=== PATIENT | male | born 1950 | race Caucasian/White ===

== ENCOUNTER → 2021-10-04 | Outpatient (CLI) | payer MEDICARE | LOC: ORTHO 11:01 | PROVIDERS: ATTEND Orthopaedic Surgery | DX: M17.11 Unilateral primary osteoarthritis, right knee (principal) | CPT/HCPCS: 20610 ==

== ENCOUNTER → 2021-11-22 | Outpatient (CLI) | payer MEDICARE ==
--- NOTE | 2021-11-22 13:52 | Diagnostic Imaging Report ---
INDICATION: Right knee pain. TIME OF EXAM: 1:06 PM. FINDINGS: Four views of the right knee were obtained. There is medial compartmental degenerative change with joint space narrowing. No fracture, dislocation, or effusion is seen. IMPRESSION: Degenerative changes. No acute abnormality is detected. Dictated by: Dictated on workstation # [id number]
== END ==
LOC: ORTHO 12:35
PROVIDERS: ATTEND Orthopaedic Surgery
DX: M17.11 Unilateral primary osteoarthritis, right knee (principal)
CPT/HCPCS: 73564; G0463; 99213

== ENCOUNTER 2021-12-15 09:46 | Outpatient (CLI) | payer MEDICARE ==
[~2021-12-15] VITALS: Ht 180.3 cm; Wt 85.5 kg
[2021-12-15 10:43] VITALS: BP 151/81
[2021-12-15 10:46] LABS: BILIRUBIN,URINE NEGATIVE (NEGATIVE); CLARITY,URINE CLEAR; COLOR,URINE YELLOW; GLUCOSE, URINE (UA) NEGATIVE (NEGATIVE); KETONES,URINE NEGATIVE (NEGATIVE); LEUKOCYTE ESTERASE ,URINE NEGATIVE (NEGATIVE); NITRITE,URINE NEGATIVE (NEGATIVE); PROTEIN,URINE NEGATIVE (NEGATIVE)
[2021-12-15 10:58] LABS: PROTHROMBIN TIME PATIENT 13.7 SEC (12.2-14.7)
[2021-12-15] MEDS ORDERED: MULT1CAP60 PO (10:58)
[2021-12-15] MEDS ORDERED: [UNRECOGNIZED DRUG - CODE] PO (10:58)
[2021-12-15] MEDS ORDERED: LOSA1TAB26 PO (10:58)
[2021-12-15] MEDS ORDERED: MAGN250T13 PO (10:58)
[2021-12-15] MEDS ORDERED: CARV25TA PO (10:58)
[2021-12-15] MEDS ORDERED: L.AC1CAP6 PO (10:58)
[2021-12-15] MEDS ORDERED: TMSL.4C PO (10:58)
[2021-12-15] MEDS ORDERED: FINA5TAB6 PO (10:58)
[2021-12-15] MEDS ORDERED: MV-M1TAB20 PO (10:58)
[2021-12-15] MEDS ORDERED: CELE-63 PO (10:58)
[2021-12-15] MEDS ORDERED: DICL20GE TP (10:58)
[2021-12-15] MEDS ORDERED: ZOLP5TAB7 PO (10:58)
[2021-12-15] MEDS ORDERED: TURM500C4 PO (10:58)
[2021-12-15 11:05] LABS: BACTERIA,URINE NEGATIVE /HPF; SQUAMOUS EPITHELIAL CELL,UR RARE /HPF
== END 2021-12-15 11:55 ==
LOC: PREOP 09:46
PROVIDERS: ATTEND Orthopaedic Surgery
DX: Z01.812 Encounter for preprocedural laboratory examination (principal); M17.11 Unilateral primary osteoarthritis, right knee; Z20.822 Contact with and (suspected) exposure to COVID-19
CPT/HCPCS: 36415; 81000; 85610; 86850; 86900; 86901; 87081; 87636

== ENCOUNTER 2021-12-19 05:57 | Inpatient (IN) | payer MEDICARE ==
[2021-12-19] VITALS (12 sets, daily range): BP systolic 124–163; BP diastolic 71–86
[~2021-12-19] VITALS: Ht 180.3 cm; Wt 85.5 kg
[~2021-12-19 05:57] MED LIST: CARV25TA PO; CELE-63 PO; DICL20GE TP; FINA5TAB6 PO; L.AC1CAP6 PO; LOSA1TAB26 PO; MAGN250T13 PO; MULT1CAP60 PO; MV-M1TAB20 PO; TMSL.4C PO; TURM500C4 PO; ZOLP5TAB7 PO; [UNRECOGNIZED DRUG - CODE] PO
[2021-12-19] MEDS: LACTATED RINGERS 1,000 ML IV PRN ×2 (06:19→08:03)
[2021-12-19] MEDS ORDERED: BUPIVACAINE 0.25% 30 ML (SENSORCAINE) VIAL ONE (06:23)
[2021-12-19] MEDS ORDERED: MIDAZOLAM 2 MG/2 ML (VERSED) VIAL ONE (06:23)
[2021-12-19] MEDS ORDERED: ceFAZolin 2 GM IV Premixed 50 ML IV ONE (06:30)
[2021-12-19] MEDS ORDERED: ceFAZolin 2 GM IV Premixed 50 ML ONE (06:34)
[2021-12-19] MEDS ORDERED: ONDANSETRON 4 MG/2 ML (SDV) Z0FRAN ONE (06:56)
[2021-12-19] MEDS ORDERED: ROCURONIUM 50 MG/5 ML (ZEMURON) VIAL IV ONE (06:56)
[2021-12-19] MEDS ORDERED: LIDOCAINE PF 2% 5 ML (XYLOCAINE) VIAL ONE (06:56)
[2021-12-19] MEDS ORDERED: fentaNYL INJ 100 MCG/2 ML AMP ONE (06:56)
[2021-12-19] MEDS ORDERED: proPOfol 200 MG/20 ML (DIPRIVAN) VIAL IV ONE (06:56)
--- NOTE | 2021-12-19 07:06 | Progress Note-Pre Operative ---
Pre-Operative Progress Note H&P Reviewed The H&P was reviewed, patient examined and no changes noted. Date Seen by Provider: Dec 19, 2021 Time Seen by Provider: 07:00 Date H&P Reviewed: Dec 19, 2021 Time H&P Reviewed: 07:00 Pre-Operative Diagnosis: R Knee Primary OA DEYSI KRISHNA MD Dec 19, 2021 07:06
[2021-12-19] MEDS ORDERED: TRANEXAMIC ACID INJECTION 3,000 MG, SODIUM CHLORIDE 0.9% IRRIGATIO 150 ML IR ONE ×2 (07:15)
[2021-12-19] MEDS ORDERED: SODIUM CHLORIDE 0.9% IR ONE ×2 (07:15)
[2021-12-19] MEDS ORDERED: TRANEXAMIC ACID IR ONE ×2 (07:15)
[2021-12-19] MEDS ORDERED: SEVOFLURANE (ULTANE) 15 ML INHAL SOLN ONE (09:21)
[2021-12-19] MEDS ORDERED: ONDANSETRON 4 MG/2 ML (SDV) Z0FRAN IV PRN (09:30)
--- NOTE | 2021-12-19 09:43 | Operative Report - Ortho ---
Operative Report Surgeon (s)/Limehouse Worker (s) Surgeon DEYSI KRSIHNA MD Limehouse Worker n/a Pre-Operative Diagnosis Right Knee Primary Osteoarthritis Post-Operative Diagnosis same Operative Report Date of Procedure: Dec 19, 2021 Name of Procedure Performed: Right Total Knee Arthroplasty Description & Findings After obtaining informed consent and marking the patient in the preoperative holding area, the patient did receive IV antibiotics. Patient was taken to the operating room and anesthesia was induced. Surgical timeout was taken. The right lower extremity was prepped and draped in the usual sterile fashion. Incision was made and carried down to fascia. Arthrotomy was performed on the medial side of the patella. Patella was retracted laterally and knee was flexed. Found to have circumferential osteophtye around the distal femur as well as exposed bone in the medial compartment. Hole was made in the distal femur for the intramedullary distal femoral cutting guide. Resection was made then the femur was sized as a 6. 4-in-1 block for a size [address]. Anterior cut was made and there was no notch. Posterior cut was made followed by the chamfers. Box cut was performed. Lug holes were drilled. Attention was turned to the tibial side, extramedullary tibial guide was put into place and aligned with the tibial crest. It was set to take 2 mm off of the affected medial side. Drop sima was used to confirm alignment. Resection was made and was parallel to the joint line. Tibial bone block was removed. Lamina audit analyst was put into place and the menisci and posterior osteophytes were removed. The knee was trialed with a size 6 femur and a size 5 tibia with a 9 mm poly trial. It was found to come out to full extension and flexed beyond 120 degrees. It was stable to varus and valgus stress throughout its range of motion. This was accepted. Knee was brought out into extension and the patella was prepared for an inset patellar button. Patellar trial was placed and this tracked well through the groove of the trial femur. Trial implants were removed. Tibial trial was pinned and punched. The cut bone surfaces were lavaged with pulsatile normal saline. Implants were opened and assembled on the back table. Cement was mixed. Cement was applied to the cut bone surface as well as the implant surface. A size 5 tibial component was impacted into placed and excess cement was removed using a [place]. A size 6 femoral component was impacted into place and excess cement was removed using a [place]. Tibial tray was lavaged with saline. A 9 mm thick polyethylene component was locked into placed and the locking mechanism was checked. Knee was brought into extension. Patellar surface was irrigated, drie d, and then cement was applied. Patellar component was clamped into place and excess cement was removed using the [place]. The knee was irrigated with normal saline. Irrigation was removed and tranexamic acid was placed. Once the cement had set, the knee was once again trialed; found to come to full extension, flexed beyond 120 degrees, and was stable to varus and valgus stress. Further tranexamic acid was applied for hemostasis. Tourniquet was dropped and electrocautery was used for further hemostasis. Fascial layer was closed with #1 Ethibond. The subcutaneous layer was closed with 2-0 Vicryl. The skin was closed with a running subcuticular 3-0 V-loc. Wound was dressed with mastisol, steri-strips, xeroform, 4x4s, ABD, webril, and TRESA wrap. Patient tolerated the procedure well and was stable to the recovery room. Anesthesia Type General plus regional Estimated Blood Loss 150 mL Specimen(s) collected/removed none DEYSI KRISHNA MD Dec 19, 2021 09:43
[2021-12-19] MEDS ORDERED: MEPERIDINE (DEMEROL) INJ 50 MG/ML IVP ONE (09:45)
[2021-12-19] MEDS ORDERED: PROMETHAZINE INJ 25 MG/ML (PHENERGAN) AMP IVP ONE (09:45)
[2021-12-19] MEDS ORDERED: morphine INJ 10 MG/ML 1ML (SYR OR VIAL) IVP ONE (09:45)
[2021-12-19] MEDS ORDERED: ONDANSETRON 4 MG/2 ML (SDV) Z0FRAN IVP PRN (09:45)
[2021-12-19] MEDS ORDERED: HYDROmorphone 2 MG/ML VIAL (DILAUDID) IV ONE (09:45)
--- NOTE | 2021-12-19 09:53 | Diagnostic Imaging Report ---
INDICATION: Right knee surgery AP and lateral views of the right knee are obtained. There has been total right knee arthroplasty with good positioning of prosthetic components. Gas and fluid is seen within the tissues surrounding the right knee however there is no evidence of fracture or immediate orthopedic hardware complication. IMPRESSION: No evidence of immediate complication post recent total right knee arthroplasty. Dictated by: Dictated on workstation # [id number]
--- NOTE | 2021-12-19 11:26 | Physical Therapy Evaluation ---
PT Evaluation-General Medical Diagnosis Admission Date Dec 19, 2021 at 05:57 Medical Diagnosis: right TKR Onset Date: Dec 19, 2021 Therapy Diagnosis Therapy Diagnosis: debility/weakness Weight Bear Status Right Lower Extremity: Right Weight Bearing/Tolerated Left Lower Extremity: Left Full Weight Bearing Referral Physician: Elham Reason for Referral: Evaluation/Treatment Medical History Pertinent Medical History: Arthritis, OA Current History s/o elective right TKR Reviewed History: Yes Social History Home: Multilevel Current Living Status: Spouse Entry Into Home: Stairs With Railing PT Steps Into Home: 2 2 flights of stairs inside home. Bedroom and bathroom on main level and does not have to go up stairs unless he has too. Prior Prior Level of Function SCALE: Activities may be completed with or without assistive devices. 8-Hmcjjxfuew-iblehnx completes the activity by him/herself with no assistance from a helper. 5-Set-up or Clean-up Assistance-helper sets up or cleans up; patient completes activity. [place] assists only prior to or following the activity. 4-Supervision or Touching Assistance-helper provides verbal cues and/or touching/steadying and/or contact guard assistance as patient completes activity. Assistance may be provided throughout the activity or intermittently. 3-Partial/Moderate Assistance-helper does LESS THAN HALF the effort. [place] lifts, holds or supports trunk or limbs, but provides less than half the effort. 2-Substantial/Maximal Assistance-helper does MORE THAN HALF the effort. [place] lifts or holds trunk or limbs and provides more than half the effort. 7-Fwielazjm-acfamb does ALL the effort. Patient does none of the effort to complete the activity. Or, the assistance of 2 or more helpers is required for the patient to complete the activity. If activity was not attempted, code reason: 7-Patient Refused. 9-Not Applicable-not attempted and the patient did not perform the activity before the current illness, exacerbation or injury. 10-Not Attempted due to Environmental Limitations-(lack of equipment, weather restraints, etc.). 88-Not Attempted due to Medical Conditions or Safety Concerns. Bed Mobility: 6 Transfers (B,C,W/C): 6 Gait: 6 Stairs: 6 Indoor Mobility (Ambulation): Independent Stairs: Independent Prior Devices Use: None PT Evaluation-Current Subjective Patient presents s/p R TKA. Patient is laying in bed and agrees to participate in therapy. Patient reports that he had his other knee replaced 6 years ago. Objective Patient Orientation: Person, Place, Time, Situation Attachments: Rosen Catheter, IV ROM/Strength ROM Lower Extremities CPM right LE 0-50 degrees R knee AROM 75 deg flexion and lacking full extension Strength Lower Extremities L LE: 4+/5 strength grossly Integumentary/Posture Posture WFL Neuromuscular (Tone, Coordination, Reflexes) grossly intact Sensory Vision: Functional Hearing: Hearing Aid/Aides Transfers Roll Left to Right (QC): 6 Lying to Sitting/Side of Bed(Q: 6 Sit to Stand (QC): 4 Chair/Eas-oq-Tklqj Xfer(QC): 4 Gait Does the Patient Walk?: Yes Mode of Locomotion: Walk Anticipated Mode of Locomotion: Walk Walk 10 feet (QC): 4 Walk 50 ft with 2 Turns(QC): 4 Walk 150 ft (QC): 4 Distance: 150' Gait Assistive Device: FWW Comments/Gait Description Patient ambulated with FWW and CGA for 150'. Patient reported that it felt good to walk on his knee. Patient is attempting to walk with normal reciprocal pa ttern. Wheelchair Training Does the Pt Use a Wheelchair?: No Balance Sitting Static: Normal Sitting Dynamic: Normal Standing Static: Fair Standing Dynamic: Fair Treatment CPM 0-50 degrees with polar pack right LE Supine exercises: SLR x10, Heel slides, Quad and glute set x10 Seated exercises: LAQ and seated marches x10 Ambulation Assessment/Needs Patient presents s/p R TKA. Patient ambulated for 150' with CGA and FWW and performed supine and seated exercises. Patient had CPM machine on for 2 hours per surgeon orders. Patient requires skilled therapy to increase strength and ROM to return to PLOF. Rehab Potential: Good PT Professor Of German Goals Long-Term Goals PT Professor Of German Goals Time Frame: Dec 24, 2021 Roll Left & Right (QC): 6 Sit to Lying (QC): 6 Lying-Sitting on Side/Bed(QC): 6 Sit to Stand (QC): 6 Chair/Hww-bm-Sacoj Xfer(QC): 6 Does the Patient Walk: Yes Walk 10 feet (QC): 6 Walk 50ft with 2 Turns (QC): 6 Walk 150 ft (QC): 6 1 Step (curb) (QC): 6 4 Steps (QC): 6 PT Plan Problem List Problem List: Activity Tolerance, Functional Strength, Safety, Balance, Gait, Transfer, ROM Treatment/Plan Treatment Plan: Continue Plan of Care Treatment Plan: Bed Mobility, Education, Functional Activity Adela, Functional Strength, Gait, Safety, Therapeutic Exercise, Transfers Treatment Duration: Dec 24, 2021 Frequency: 11 times per week Estimated Hrs Per Day: .5 hour per day Safety Risks/Education Patient Education: Gait Training, Correct Positioning Teaching Recipient: Patient Teaching Methods: Discussion Time/GCodes Time In: 1300 Time Out: 1315 Total Billed Treatment Time: 15 Total Billed Treatment 1 visit CPM/PADS [id number] (10 min) 1 Visit EVModC 15 min MCKENNA REGAN PT Dec 19, 2021 11:26
[2021-12-19] MEDS ORDERED: ceFAZolin 2 GM IV Premixed 50 ML IV NR (12:00)
[2021-12-19] MEDS: morphine INJ 4 MG/ML 1 ML (VIAL/SYRINGE) IVP PRN (13:42)
[2021-12-19] MEDS: MILK OF MAGNESIA 400 MG/5 ML 30 ML UDC PO PRN (13:42)
[2021-12-19] MEDS: ASPIRIN E.C. 81 MG (ECOTRIN) TAB PO SCH (17:44)
[2021-12-19] MEDS ORDERED: CELECOXIB 100 MG (CeleBREX) CAP PO SCH (21:00)
[2021-12-19] MEDS ORDERED: NON-FORMULARY MEDICATION 1 EA EA (Carvedilol 25 MG) PO SCH (21:00)
[2021-12-19] MEDS: FINASTERIDE (PROSCAR) 5 MG TAB PO SCH (21:04)
[2021-12-19] MEDS: ZOLPIDEM 5 MG (AMBIEN) TAB PO SCH (21:04)
[2021-12-19] MEDS: DOCUSATE SODIUM 100 MG (COLACE) CAP PO SCH (21:04)
[2021-12-19] MEDS: ceFAZolin 2 GM IV Premixed 50 ML IV SCH (21:05)
[2021-12-20 03:16] VITALS: BP 128/67
[2021-12-20] MEDS: morphine INJ 4 MG/ML 1 ML (VIAL/SYRINGE) IVP PRN (03:21)
[2021-12-20] MEDS: ceFAZolin 2 GM IV Premixed 50 ML IV SCH (05:17)
[2021-12-20] MEDS: MULTIVIT W/MINERALS TAB (THERAGRAN M) PO SCH (05:18)
[2021-12-20] MEDS: BISACODYL 5 MG (DULCOLAX) TABLET PO PRN ×2 (05:25→18:08)
[2021-12-20 08:15] VITALS: BP 134/59
--- NOTE | 2021-12-20 08:20 | Progress Note - Ortho ---
Progress Note Subjective Date of Exam 12/20/21 Chief Complaint POD #1 R TKA HPI/Events since last exam pain reasonably controlled, some issues with CPM machine, was able to ambulate in the abarca on day of surgery Review of Systems - Allergies: Coded Allergies: No Known Drug Allergies (Unverified , 12/19/21) Home Meds Reported Medications Diclofenac Sodium (Voltaren Arthritis Pain) 20 Gm Gel..gram., 20 GM TP TID, EA 12/15/21 L.acidoph & Paracasei,B.lactis (Probiotic) 1 Each Capsule, 1 EACH PO DAILY, CAP 12/15/21 Magnesium Oxide (Magnesium) 250 Mg Tablet, 250 MG PO DAILY, TAB 12/15/21 Turmeric/Turmeric Root Extract (Turmeric 500 mg Capsule) 1 Each Capsule, 1 EACH PO DAILY, CAP 12/15/21 Mv-Mn/Iron/FA/Herbal Cmplx#190 (Vitamin D3 Complete Caplet) 1 Each Tablet, 1 EACH PO DAILY, TAB 12/15/21 Glucosamine Sulfate 2Kcl (Glucosamine Sulfate) 1,000 Mg Capsule, 2000 MG PO DAILY, CAP 12/15/21 Multivit-Min/Folic Acid/Vit K1 (Multi For Him Softgel) 1 Each Capsule, 1 EACH PO DAILY, CAP 12/15/21 Zolpidem Tartrate (Zolpidem Tartrate) 5 Mg Tablet, 5 MG PO HS, TAB 12/15/21 Finasteride (Finasteride) 5 Mg Tablet, 5 MG PO HS, TAB 12/15/21 Tamsulosin HCl (Flomax) 0.4 Mg Cap, 0.8 MG PO DAILY, CAP 12/15/21 Carvedilol (Carvedilol) 25 Mg Tablet, 25 MG PO BID, TAB MORNIG AND NOON 12/15/21 Losartan/Hydrochlorothiazide (Losartan-Hctz 100-12.5 mg Tab) 1 Each Tablet, 1 EACH PO DAILY, TAB 12/15/21 Celecoxib (Celecoxib) 200 Mg Capsule, 200 MG PO DAILY, CAP 12/15/21 Objective Exam R Knee: Dressing C/D/I, +DF of ankle, no s/s of DVT Vital Signs Vital Signs Date Time Temp Pulse Resp B/P (MAP) Pulse Ox O2 Delivery O2 Flow Rate FiO2 12/20/21 08:15 36.7 91 18 134/59 (84) 93 Room Air 12/20/21 03:16 36.7 89 20 128/67 (87) 94 Room Air 12/19/21 23:36 37.5 101 18 124/75 (91) 95 Room Air 12/19/21 20:40 95 Room Air 12/19/21 19:54 36.8 96 18 133/71 (91) 96 Room Air 12/19/21 19:26 98 Room Air 3.00 12/19/21 15:30 36.2 72 18 163/81 (108) 98 Room Air 12/19/21 15:25 Room Air 12/19/21 12:00 36.6 73 16 154/74 (100) 97 Room Air 12/19/21 10:25 Room Air 12/19/21 10:25 36.4 18 154/78 (103) 99 Room Air 12/19/21 10:25 36.0 62 12 146/77 (100) 100 Room Air 12/19/21 10:20 18 152/75 (100) 98 Room Air 12/19/21 10:14 Room Air 12/19/21 10:10 18 154/79 (104) 100 Room Air 12/19/21 10:06 Room Air 12/19/21 10:02 OxyMask 3 12/19/21 10:00 18 144/76 (98) 100 OxyMask 3 12/19/21 09:56 OxyMask 3 12/19/21 09:55 OxyMask 6 12/19/21 09:50 18 142/76 (98) 100 OxyMask 6 12/19/21 09:47 18 153/85 (107) 100 OxyMask 6 12/19/21 09:40 OxyMask 6 12/19/21 09:38 18 143/75 (97) 100 OxyMask 6 12/19/21 09:29 36.2 16 132/86 (101) 99 OxyMask 6 12/19/21 09:29 OxyMask 6 I & O 12/20/21 07:00 Intake Total 5060 ml Output Total 1250 ml Balance 3810 ml Lab Results Laboratory Tests 12/20/21 06:05: Hemoglobin 12.0L, Hematocrit 34L Imaging 2 views of the right knee datd 12/19/21 were reviewed from PACS and demonstrated total knee arthroplasty with components in good position, no complication Assessment and Plan Assessment s/p R TKA Problem List s/p R TKA Plan PT/OT DVT prophylaxis Plan for Home with Home Health on Final Diagonsis s/p R TKA Level of the visit: Level 3 (postop global) DEYSI KRISHNA MD Dec 20, 2021 08:20
--- NOTE | 2021-12-20 08:50 | Physical Therapy Daily Note ---
PT Daily Note-Current Subjective Patient is laying in bed and agrees to participate in PT. Patient reports that his knee was painful all night and he didn't get much sleep. Mental Status Patient Orientation: Person, Place, Time, Situation Attachments: Polar Pack Transfers SCALE: Activities may be completed with or without assistive devices. 7-Eqiufvktei-oivlnnm completes the activity by him/herself with no assistance from a helper. 5-Set-up or Clean-up Assistance-helper sets up or cleans up; patient completes activity. [place] assists only prior to or following the activity. 4-Supervision or Touching Assistance-helper provides verbal cues and/or touching/steadying and/or contact guard assistance as patient completes activity. Assistance may be provided throughout the activity or intermittently. 3-Partial/Moderate Assistance-helper does LESS THAN HALF the effort. [place] lifts, holds or supports trunk or limbs, but provides less than half the effort. 2-Substantial/Maximal Assistance-helper does MORE THAN HALF the effort. [place] lifts or holds trunk or limbs and provides more than half the effort. 1-Noxciokmg-dbjspn does ALL the effort. Patient does none of the effort to complete the activity. Or, the assistance of 2 or more helpers is required for the patient to complete the activity. If activity was not attempted, code reason: 7-Patient Refused. 9-Not Applicable-not attempted and the patient did not perform the activity before the current illness, exacerbation or injury. 10-Not Attempted due to Environmental Limitations-(lack of equipment, weather restraints, etc.). 88-Not Attempted due to Medical Conditions or Safety Concerns. Roll Left & Right (QC): 6 Lying to Sitting/Side of Bed(Q: 6 Sit to Stand (QC): 4 Chair/Kij-cz-Wcskl Xfer(QC): 4 Weight Bearing Right Lower Extremity: Right Weight Bearing/Tolerated Left Lower Extremity: Left Full Weight Bearing Gait Training Does the Patient Walk?: Yes Distance: 250' Walk 10 feet (QC): 4 Walk 50 ft with 2 Turns(QC): 4 Walk 150 ft (QC): 4 Gait Assistive Device: FWW Patient ambulated with FWW and CGA for 250'. Patient reports that pain does not increase significantly while walking. Exercises Supine Ex: Quad Set, Heel Slides, Straight leg raise Supine Reps: 10 Seated Therapy Exercises: Long arc quads Seated Reps: 10 Assessment Patient ambulated and performed seated and standing exercises without significant fatigue. Patient reports that his knee is painful but is manageable through all exercises. Patient ROM is improving and is about 80 degrees of flexion. PT Shine Worker Goals Shine Worker Goals PT Shine Worker Goals Time Frame: Dec 24, 2021 Roll Left & Right (QC): 6 Sit to Lying (QC): 6 Lying-Sitting on Side/Bed(QC): 6 Sit to Stand (QC): 6 Chair/Big-sd-Gerfe Xfer(QC): 6 Does the Patient Walk: Yes Walk 10 feet (QC): 6 Walk 50ft with 2 Turns (QC): 6 Walk 150 ft (QC): 6 1 Step (curb) (QC): 6 4 Steps (QC): 6 PT Plan Problem List Problem List: Activity Tolerance, Functional Strength, Safety, Balance, Gait, Transfer, ROM Treatment/Plan Treatment Plan: Continue Plan of Care Treatment Plan: Bed Mobility, Education, Functional Activity Adela, Functional Strength, Gait, Safety, Therapeutic Exercise, Transfers Treatment Duration: Dec 24, 2021 Frequency: 11 times per week Estimated Hrs Per Day: .5 hour per day Time/GCodes Time In: 810 Time Out: 825 Total Billed Treatment Time: 15 Total Billed Treatment 1 Visit FA 15 min MCKENNA REGAN PT Dec 20, 2021 08:50
[2021-12-20] MEDS ORDERED: NON-FORMULARY MEDICATION 1 EA EA (Celecoxib 200 MG) PO SCH (09:00)
[2021-12-20] MEDS: CELECOXIB 100 MG (CeleBREX) CAP PO SCH (09:25)
[2021-12-20] MEDS: MILK OF MAGNESIA 400 MG/5 ML 30 ML UDC PO PRN (09:25)
[2021-12-20] MEDS: LOSARTAN 100 MG (COZAAR) TABLET PO SCH (09:25)
[2021-12-20] MEDS: ASPIRIN E.C. 81 MG (ECOTRIN) TAB PO SCH ×2 (09:25→18:08)
[2021-12-20] MEDS: DOCUSATE SODIUM 100 MG (COLACE) CAP PO SCH ×2 (09:25→21:26)
[2021-12-20] MEDS: TAMSULOSIN 0.4 MG (FLOMAX) CAP PO SCH (09:25)
--- NOTE | 2021-12-20 11:32 | Occupational Therapy Eval ---
OT Evaluation-General/PLF Medical Diagnosis Admission Date Dec 19, 2021 at 05:57 Medical Diagnosis: right TKR Onset Date: Dec 19, 2021 Therapy Diagnosis Therapy Diagnosis: decreased ADL Status. Precautions Precautions/Isolations: Fall Prevention, Standard Precautions Referral Physician: Elham Referral Reason: Evaluation/Treatment Medical History Pertinent Medical History: Arthritis, OA Current History s/p R TKA 12/20/21 Social History Home: [facility] Current Living Status: Spouse Entry Into Home: Stairs With Railing Steps Into Home: 2 ADL-Prior Level of Function SCALE: Activities may be completed with or without assistive devices. 9-Wybivnuluj-kxaipfg completes the activity by him/herself with no assistance from a helper. 5-Set-up or Clean-up Assistance-helper sets up or cleans up; patient completes activity. [place] assists only prior to or following the activity. 4-Supervision or Touching Assistance-helper provides verbal cues and/or touching/steadying and/or contact guard assistance as patient completes activity. Assistance may be provided throughout the activity or intermittently. 3-Partial/Moderate Assistance-helper does LESS THAN HALF the effort. [place] lifts, holds or supports trunk or limbs, but provides less than half the effort. 2-Substantial/Maximal Assistance-helper does MORE THAN HALF the effort. [place] lifts or holds trunk or limbs and provides more than half the effort. 9-Sjlmhmuli-noflqd does ALL the effort. Patient does none of the effort to complete the activity. Or, the assistance of 2 or more helpers is required for the patient to complete the activity. If activity was not attempted, code reason: 7-Patient Refused. 9-Not Applicable-not attempted and the patient did not perform the activity before the current illness, exacerbation or injury. 10-Not Attempted due to Environmental Limitations-(lack of equipment, weather restraints, etc.). 88-Not Attempted due to Medical Conditions or Safety Concerns. ADL PLOF Comments Pt reports IND with all ADLs and functional mobility at PLOF, no AD/AE. He lives in a multistory house, but has bathroom and bedroom on main level. OT Current Status Subjective Pt in recliner, requests to use bathroom upon OT entry. Mental Status/Objective Patient Orientation: Person, Place, Time, Situation Current Upper Extremity ROM WFL ADL-Treatment Eating (QC): 6 (Per pt report.) Oral Hygiene (QC): 6 (per clinical judgment.) Upper Body Dressing (QC): 5 (per clincial judgment.) Lower Body Dressing (QC): 3 (Per clincial judgment, requires assistance with RLE ) On/Off Footwear (QC): 3 (Pt able to don/doff L gripper sock, assistance R. ) Toileting Hygiene (QC): 4 (SBA) Other Treatments Pt in recliner, used FWW to transfer into bathroom and onto toilet, SBA. Pt completed toileting, then used FWW to stand at sink to wash hands independently. Pt transferred to recliner using FWW, SBA. Pt able to don/doff L gripper sock, required assistance with R. OT applied polar pack to R knee. Post tx, pt up in recliner, call light in reach and all needs met. Education OT Patient Education: Correct positioning, Energy conservation, Exercise program, Modified ADL techniques, Progress toward Goal/Update tx plan, Purpose of tx/functional activities, Rehab process Teaching Recipient: Patient Teaching Methods: Discussion Response to Teaching: Verbalize Understanding OT Intermediate Goals Manager Money Goals Time Frame: Dec 27, 2021 Eating (QC): 6 Oral Hygiene (QC): 6 Toileting Hygiene (QC): 6 Shower/Bathe Self (QC): 6 Upper Body Dressing (QC): 6 Lower Body Dressing (QC): 6 On/Off Footwear (QC): 6 Additional Goals: 1-Demonstrate ADL Tasks, 2-Verbalize Understanding, 3- ImproveStrength/Adela 1=Demonstrate adherence to instructed precautions during ADL tasks. 2=Patient will verbalize/demonstrate understanding of assistive devices/modifications for ADL. 3=Patient will improve strength/tolerance for activity to enable patient to perform ADL's. OT Education/Plan Problem List/Assessment Assessment: Decreased Activ Tolerance, Decreased UE Strength, Impaired I ADL's Discharge Recommendations Plan/Recommendations: Continue POC Treatment Plan/Plan of Care Patient would benefit from OT for education, treatment and training to promote independence in ADL's, mobility, safety and/or upper extremity function for ADL's. Plan of Care: ADL Retraining, Functional Mobility, UE Funct Exercise/Act Treatment Duration: Dec 27, 2021 Frequency: 3 times per week (3-5 times per week) Rehab Potential: Good Time/GCodes Start Time: 10:39 Stop Time: 10:58 Total Time Billed (hr/min): 19 Billed Treatment Time 1, KIMBERLEE DAVISON OT Dec 20, 2021 11:32
[2021-12-20 11:56] VITALS: BP 110/59
--- NOTE | 2021-12-20 14:07 | Anesthesia-General Post-Op ---
General Patient Condition Mental Status/LOC: Same as Preop Cardiovascular: Satisfactory Nausea/Vomiting: Absent Respiratory: Satisfactory Pain: Controlled Complications: Absent Post Op Complications Complications None Follow Up Care/Instructions Patient Instructions None needed. Anesthesia/Patient Condition Patient Condition Patient is doing well, does C/O a minimal sore throat which is to be expected, stable vital signs, no apparent adverse anesthesia problems. JEREMY GARCIA DO Dec 20, 2021 14:07
--- NOTE | 2021-12-20 14:23 | Physical Therapy Daily Note ---
PT Daily Note-Current Subjective Patient presents sitting in his chair and agrees to participate in therapy. Mental Status Patient Orientation: Person, Place, Time, Situation Attachments: Polar Pack Transfers SCALE: Activities may be completed with or without assistive devices. 6-Kibmzanepl-hbymidx completes the activity by him/herself with no assistance from a helper. 5-Set-up or Clean-up Assistance-helper sets up or cleans up; patient completes activity. [place] assists only prior to or following the activity. 4-Supervision or Touching Assistance-helper provides verbal cues and/or touching/steadying and/or contact guard assistance as patient completes activity. Assistance may be provided throughout the activity or intermittently. 3-Partial/Moderate Assistance-helper does LESS THAN HALF the effort. [place] lifts, holds or supports trunk or limbs, but provides less than half the effort. 2-Substantial/Maximal Assistance-helper does MORE THAN HALF the effort. [place] lifts or holds trunk or limbs and provides more than half the effort. 2-Idndlujgw-oyhvvd does ALL the effort. Patient does none of the effort to complete the activity. Or, the assistance of 2 or more helpers is required for the patient to complete the activity. If activity was not attempted, code reason: 7-Patient Refused. 9-Not Applicable-not attempted and the patient did not perform the activity before the current illness, exacerbation or injury. 10-Not Attempted due to Environmental Limitations-(lack of equipment, weather restraints, etc.). 88-Not Attempted due to Medical Conditions or Safety Concerns. Roll Left & Right (QC): 6 Sit to Lying (QC): 5 Lying to Sitting/Side of Bed(Q: 6 Sit to Stand (QC): 5 Chair/Jxe-hk-Dnqlx Xfer(QC): 5 Patient performed all transfers with set up assistance only. Weight Bearing Right Lower Extremity: Right Weight Bearing/Tolerated Left Lower Extremity: Left Full Weight Bearing Gait Training Does the Patient Walk?: Yes Distance: 250' Walk 10 feet (QC): 4 Walk 50 ft with 2 Turns(QC): 4 Walk 150 ft (QC): 4 Gait Assistive Device: FWW Patient ambulated with FWW with CGA. Exercises Supine Ex: Quad Set, Heel Slides, Straight leg raise Supine Reps: 10 Seated Therapy Exercises: Long arc quads, Hip flexion Seated Reps: 10 Assessment Patient completed supine and seated exercises and ambulated with minimal difficulty. Patient reported that his knee was sore. Patient requested to have the polar pack back on his knee after therapy session. PT Usp Goals Usp Goals PT Usp Goals Time Frame: Dec 24, 2021 Roll Left & Right (QC): 6 Sit to Lying (QC): 6 Lying-Sitting on Side/Bed(QC): 6 Sit to Stand (QC): 6 Chair/Qga-qb-Jckna Xfer(QC): 6 Does the Patient Walk: Yes Walk 10 feet (QC): 6 Walk 50ft with 2 Turns (QC): 6 Walk 150 ft (QC): 6 1 Step (curb) (QC): 6 4 Steps (QC): 6 PT Plan Problem List Problem List: Activity Tolerance, Functional Strength, Safety, Balance, Gait, Transfer, Bed Mobility, ROM Treatment/Plan Treatment Plan: Continue Plan of Care Treatment Plan: Bed Mobility, Education, Functional Activity Adela, Functional Strength, Gait, Safety, Therapeutic Exercise, Transfers Treatment Duration: Dec 24, 2021 Frequency: 11 times per week Estimated Hrs Per Day: .5 hour per day Time/GCodes Time In: 1313 Time Out: 1325 Total Billed Treatment Time: 12 Total Billed Treatment 1 Visit FA 12 min MCKENNA REGAN PT Dec 20, 2021 14:23
[2021-12-20 16:00] VITALS: BP 113/68
[2021-12-20] MEDS ORDERED: BISACODYL 10 MG SUPP (DULCOLAX) PR PRN (18:15)
[2021-12-20 20:00] VITALS: BP 109/57
[2021-12-20] MEDS: ZOLPIDEM 5 MG (AMBIEN) TAB PO SCH (21:25)
[2021-12-20] MEDS: FINASTERIDE (PROSCAR) 5 MG TAB PO SCH (21:26)
[2021-12-20 23:25] VITALS: BP 131/73
[2021-12-21 04:35] VITALS: BP 144/72
[2021-12-21 05:43] LABS: HEMOGLOBIN 11.8 g/dL (13.3-17.7)
[2021-12-21] MEDS: MULTIVIT W/MINERALS TAB (THERAGRAN M) PO SCH (06:34)
[2021-12-21 08:00] VITALS: BP 114/57
[2021-12-21] MEDS: DOCUSATE SODIUM 100 MG (COLACE) CAP PO SCH ×2 (08:31→21:16)
[2021-12-21] MEDS: CELECOXIB 100 MG (CeleBREX) CAP PO SCH (08:31)
[2021-12-21] MEDS: LOSARTAN 100 MG (COZAAR) TABLET PO SCH (08:31)
[2021-12-21] MEDS: TAMSULOSIN 0.4 MG (FLOMAX) CAP PO SCH (08:32)
[2021-12-21] MEDS: ASPIRIN E.C. 81 MG (ECOTRIN) TAB PO SCH ×2 (08:32→16:38)
[2021-12-21] MEDS: MILK OF MAGNESIA 400 MG/5 ML 30 ML UDC PO PRN (08:35)
--- NOTE | 2021-12-21 10:23 | Progress Note - Ortho ---
Progress Note Subjective Date of Exam 12/21/21 Chief Complaint POD #2 R TKA HPI/Events since last exam pain controlled, making progress with therapy, very concerned about bowel movement Review of Systems - Allergies: Coded Allergies: No Known Drug Allergies (Unverified , 12/19/21) Home Meds Reported Medications Diclofenac Sodium (Voltaren Arthritis Pain) 20 Gm Gel..gram., 20 GM TP TID, EA 12/15/21 L.acidoph & Paracasei,B.lactis (Probiotic) 1 Each Capsule, 1 EACH PO DAILY, CAP 12/15/21 Magnesium Oxide (Magnesium) 250 Mg Tablet, 250 MG PO DAILY, TAB 12/15/21 Turmeric/Turmeric Root Extract (Turmeric 500 mg Capsule) 1 Each Capsule, 1 EACH PO DAILY, CAP 12/15/21 Mv-Mn/Iron/FA/Herbal Cmplx#190 (Vitamin D3 Complete Caplet) 1 Each Tablet, 1 EACH PO DAILY, TAB 12/15/21 Glucosamine Sulfate 2Kcl (Glucosamine Sulfate) 1,000 Mg Capsule, 2000 MG PO DAILY, CAP 12/15/21 Multivit-Min/Folic Acid/Vit K1 (Multi For Him Softgel) 1 Each Capsule, 1 EACH PO DAILY, CAP 12/15/21 Zolpidem Tartrate (Zolpidem Tartrate) 5 Mg Tablet, 5 MG PO HS, TAB 12/15/21 Finasteride (Finasteride) 5 Mg Tablet, 5 MG PO HS, TAB 12/15/21 Tamsulosin HCl (Flomax) 0.4 Mg Cap, 0.8 MG PO DAILY, CAP 12/15/21 Carvedilol (Carvedilol) 25 Mg Tablet, 25 MG PO BID, TAB MORNIG AND NOON 12/15/21 Losartan/Hydrochlorothiazide (Losartan-Hctz 100-12.5 mg Tab) 1 Each Tablet, 1 EACH PO DAILY, TAB 12/15/21 Celecoxib (Celecoxib) 200 Mg Capsule, 200 MG PO DAILY, CAP 12/15/21 Objective Exam R Knee: Incision C/D/I, +DF of ankle, no s/s of DVT Vital Signs Vital Signs Date Time Temp Pulse Resp B/P (MAP) Pulse Ox O2 Delivery O2 Flow Rate FiO2 12/21/21 08:00 36.8 82 20 114/57 (76) 96 Room Air 12/21/21 08:00 Room Air 12/21/21 04:35 36.2 79 20 144/72 (96) 99 Room Air 12/20/21 23:25 36.4 86 20 131/73 (92) 98 Room Air 12/20/21 20:00 36.6 84 20 109/57 (74) 96 Room Air 12/20/21 19:48 Room Air 12/20/21 16:00 36.7 81 16 113/68 (83) 96 Room Air 12/20/21 13:55 Room Air 0.00 12/20/21 11:56 36.2 85 18 110/59 (76) 96 Room Air I & O 12/21/21 07:00 Intake Total 2290 ml Output Total 200 ml Balance 2090 ml Lab Results Laboratory Tests 12/21/21 04:40: Hemoglobin 11.8L, Hematocrit 34L Assessment and Plan Assessment s/p R TKA Problem List s/p R TKA Plan PT/OT DVT prophylaxis Plan for home with home health tomorrow Final Diagonsis s/p R TKA Level of the visit: Level 3 (postop global) DEYSI KRISHNA MD Dec 21, 2021 10:23
--- NOTE | 2021-12-21 10:42 | Occupational Ther Daily Note ---
OT Current Status-Daily Note Subjective Pt in recliner. Pt agreeable to OT tx. Mental Status/Objective Patient Orientation: Person, Place, Time, Situation ADL-Treatment Therapy Code Descriptions/Definitions Functional [place] Measure: 0=Not Assessed/NA 4=Minimal Assistance 1=Total Assistance 5=Supervision or Setup 2=Maximal Assistance 6=Modified [place] 3=Moderate Assistance 7=Complete IndependenceSCALE: Activities may be completed with or without assistive devices. 7-Bundkcjgvu-jgciklt completes the activity by him/herself with no assistance from a helper. 5-Set-up or Clean-up Assistance-helper sets up or cleans up; patient completes activity. [place] assists only prior to or following the activity. 4-Supervision or Touching Assistance-helper provides verbal cues and/or touching/steadying and/or contact guard assistance as patient completes activity. Assistance may be provided throughout the activity or intermittently. 3-Partial/Moderate Assistance-helper does LESS THAN HALF the effort. [place] lifts, holds or supports trunk or limbs, but provides less than half the effort. 2-Substantial/Maximal Assistance-helper does MORE THAN HALF the effort. [place] lifts or holds trunk or limbs and provides more than half the effort. 4-Jfbxlzlcd-ormdbd does ALL the effort. Patient does none of the effort to complete the activity. Or, the assistance of 2 or more helpers is required for the patient to complete the activity. If activity was not attempted, code reason: 7-Patient Refused. 9-Not Applicable-not attempted and the patient did not perform the activity before the current illness, exacerbation or injury. 10-Not Attempted due to Environmental Limitations-(lack of equipment, weather restraints, etc.). 88-Not Attempted due to Medical Conditions or Safety Concerns. Lower Body Dressing (QC): 6 (independent) On/Off Footwear: 6 (independent ) Toilet Transfer (QC): 6 (Per pt report) Other Treatment Pt in recliner. Pt doffed socks independently. Pt donned socks and briefs, he was educated/shown AE that he could use if needed. Pt practiced using AE to don socks and briefs, no errors. Pt in recliner, call light in reach and all needs met. Pt reports no concerns with his ability to complete ADLs at discharge. Education OT Patient Education: Correct positioning, Energy conservation, Modified ADL techniques, Progress toward Goal/Update tx plan, Purpose of tx/functional activities, Use of adapted equipment (sock aide and cathead operator) Teaching Recipient: Patient Teaching Methods: Demonstration Response to Teaching: Verbalize Understanding, Return Demonstration OT Halfway Goals Wood Web Weaving Machine Operator Goals Time Frame: Dec 27, 2021 Eating (QC): 6 Oral Hygiene (QC): 6 Toileting Hygiene (QC): 6 Shower/Bathe Self (QC): 6 Upper Body Dressing (QC): 6 Lower Body Dressing (QC): 6 On/Off Footwear (QC): 6 Additional Goals: 1-Demonstrate ADL Tasks, 2-Verbalize Understanding, 3- ImproveStrength/[place]ela 1=Demonstrate adherence to instructed precautions during ADL tasks. 2=Patient will verbalize/demonstrate understanding of assistive devices/modifications for ADL. 3=Patient will improve strength/tolerance for activity to enable patient to perform ADL's. OT Education/Plan Problem List/Assessment Assessment: No Skilled OT Needs ID'd No further skilled OT services required as pt is independent with ADLs and at OF. Discharge Recommendations Plan/Recommendations: Discharge/Goals Met Treatment Plan/Plan of Care Patient would benefit from OT for education, treatment and training to promote independence in ADL's, mobility, safety and/or upper extremity function for ADL's. Plan of Care: ADL Retraining, Functional Mobility, UE Funct Exercise/Act Treatment Duration: Dec 27, 2021 Frequency: 3 times per week (3-5 times per week) Rehab Potential: Good Time/GCodes Start Time: 10:25 Stop Time: 10:33 Total Time Billed (hr/min): 8 Billed Treatment Time 1, ADL (8) KIMBERLEE LAST OT Dec 21, 2021 10:42
[2021-12-21 11:15] VITALS: BP 100/56
--- NOTE | 2021-12-21 13:25 | Physical Therapy Daily Note ---
PT Daily Note-Current Subjective Pt sitting in recliner upon arrival. Pt agrees to ambulate for PT tx. Pain Location: No Pain Reported Mental Status Patient Orientation: Person, Place, Time, Situation Attachments: Polar Pack Transfers SCALE: Activities may be completed with or without assistive devices. 6-Wjucnbwmiz-miywddz completes the activity by him/herself with no assistance from a helper. 5-Set-up or Clean-up Assistance-helper sets up or cleans up; patient completes activity. [place] assists only prior to or following the activity. 4-Supervision or Touching Assistance-helper provides verbal cues and/or touching/steadying and/or contact guard assistance as patient completes activity. Assistance may be provided throughout the activity or intermittently. 3-Partial/Moderate Assistance-helper does LESS THAN HALF the effort. [place] lifts, holds or supports trunk or limbs, but provides less than half the effort. 2-Substantial/Maximal Assistance-helper does MORE THAN HALF the effort. [place] lifts or holds trunk or limbs and provides more than half the effort. 0-Gbhwwilaq-nifncd does ALL the effort. Patient does none of the effort to complete the activity. Or, the assistance of 2 or more helpers is required for the patient to complete the activity. If activity was not attempted, code reason: 7-Patient Refused. 9-Not Applicable-not attempted and the patient did not perform the activity before the current illness, exacerbation or injury. 10-Not Attempted due to Environmental Limitations-(lack of equipment, weather restraints, etc.). 88-Not Attempted due to Medical Conditions or Safety Concerns. Sit to Stand (QC): 6 Weight Bearing Right Lower Extremity: Right Weight Bearing/Tolerated Left Lower Extremity: Left Full Weight Bearing Gait Training Does the Patient Walk?: Yes Distance: 250' Walk 10 feet (QC): 6 Walk 50 ft with 2 Turns(QC): 6 Walk 150 ft (QC): 6 Gait Persons Needed: 0 Gait Assistive Device: FWW Exercises Supine Ex: Quad Set, Heel Slides, Straight leg raise Supine Reps: 15 Seated Therapy Exercises: Long arc quads Seated Reps: 15 Treatments Pt TF to standing and amb. in hallway. Upon return to room, pt sits in recliner and completes EX. Pt resting in recliner with all needs met, call light in hand at end of tx. Assessment Current Status: Good Progress Pt tolerated tx well. PT Frequency Checker Goals Frequency Checker Goals PT [facility] Goals Time Frame: Dec 24, 2021 Roll Left & Right (QC): 6 Sit to Lying (QC): 6 Lying-Sitting on Side/Bed(QC): 6 Sit to Stand (QC): 6 Chair/Trl-ab-Ivnbn Xfer(QC): 6 Does the Patient Walk: Yes Walk 10 feet (QC): 6 Walk 50ft with 2 Turns (QC): 6 Walk 150 ft (QC): 6 1 Step (curb) (QC): 6 4 Steps (QC): 6 PT Plan Problem List Problem List: Activity Tolerance Treatment/Plan Treatment Plan: Continue Plan of Care Treatment Plan: Bed Mobility, Education, Functional Activity Adela, Functional Strength, Gait, Safety, Therapeutic Exercise, Transfers Treatment Duration: Dec 24, 2021 Frequency: 11 times per week Estimated Hrs Per Day: .5 hour per day Time/GCodes Time In: 1123 Time Out: 1143 Total Billed Treatment Time: 20 Total Billed Treatment 1, GT (20m) ELAINE MONTERO PTA Dec 21, 2021 13:25
[2021-12-21 15:30] VITALS: BP 128/60
--- NOTE | 2021-12-21 15:48 | Physical Therapy Daily Note ---
PT Daily Note-Current Subjective Pt laying Supine in bed upon arrival. Pt agrees to walk with PT. DISTRIBUTION TECH had checked on pt an hour ago but pt waiting on suppository to work and asked to wait a little while. Pain Location: No Pain Reported Mental Status Patient Orientation: Person, Place, Time, Situation Transfers SCALE: Activities may be completed with or without assistive devices. 5-Dgaitjwjqj-bppwfzz completes the activity by him/herself with no assistance from a helper. 5-Set-up or Clean-up Assistance-helper sets up or cleans up; patient completes activity. [place] assists only prior to or following the activity. 4-Supervision or Touching Assistance-helper provides verbal cues and/or touching/steadying and/or contact guard assistance as patient completes activity. Assistance may be provided throughout the activity or intermittently. 3-Partial/Moderate Assistance-helper does LESS THAN HALF the effort. [place] lifts, holds or supports trunk or limbs, but provides less than half the effort. 2-Substantial/Maximal Assistance-helper does MORE THAN HALF the effort. [place] lifts or holds trunk or limbs and provides more than half the effort. 6-Ngdxhfvzl-zxofvn does ALL the effort. Patient does none of the effort to complete the activity. Or, the assistance of 2 or more helpers is required for the patient to complete the activity. If activity was not attempted, code reason: 7-Patient Refused. 9-Not Applicable-not attempted and the patient did not perform the activity before the current illness, exacerbation or injury. 10-Not Attempted due to Environmental Limitations-(lack of equipment, weather restraints, etc.). 88-Not Attempted due to Medical Conditions or Safety Concerns. Lying to Sitting/Side of Bed(Q: 6 Sit to Stand (QC): 6 Toilet Transfer (QC): 6 Weight Bearing Right Lower Extremity: Right Weight Bearing/Tolerated Left Lower Extremity: Left Full Weight Bearing Gait Training Does the Patient Walk?: Yes Distance: 250', 100' x2 Walk 10 feet (QC): 6 Walk 50 ft with 2 Turns(QC): 6 Walk 150 ft (QC): 6 Gait Persons Needed: 0 Gait Assistive Device: FWW Treatments Pt TF to standing then amb. in hallway. Pt takes one short RB during amb. Pt returns to room to use BR as he had received a suppository recently. Pt has all needs met and will pull call light if needed. Assessment Current Status: Good Progress Pt tolerates tx well. PT Fellmongering Machine Operator Goals Fellmongering Machine Operator Goals PT Assisted Goals Time Frame: Dec 24, 2021 Roll Left & Right (QC): 6 Sit to Lying (QC): 6 Lying-Sitting on Side/Bed(QC): 6 Sit to Stand (QC): 6 Chair/Sqz-om-Kqdod Xfer(QC): 6 Does the Patient Walk: Yes Walk 10 feet (QC): 6 Walk 50ft with 2 Turns (QC): 6 Walk 150 ft (QC): 6 1 Step (curb) (QC): 6 4 Steps (QC): 6 PT Plan Treatment/Plan Treatment Plan: Continue Plan of Care Treatment Plan: Bed Mobility, Education, Functional Activity Adela, Functional Strength, Gait, Safety, Therapeutic Exercise, Transfers Treatment Duration: Dec 24, 2021 Frequency: 11 times per week Estimated Hrs Per Day: .5 hour per day Time/GCodes Time In: 1530 Time Out: 1545 Total Billed Treatment Time: 15 Total Billed Treatment 1, GT (15m) ELAINE MONTERO DISTRIBUTION TECH Dec 21, 2021 15:48
[2021-12-21] MEDS: ACETAMINOPHEN 500 MG TAB (TYLENOL) PO PRN (16:38)
[2021-12-21 20:20] VITALS: BP 114/64
[2021-12-21] MEDS: ZOLPIDEM 5 MG (AMBIEN) TAB PO SCH (21:16)
[2021-12-21] MEDS: FINASTERIDE (PROSCAR) 5 MG TAB PO SCH (21:16)
[2021-12-22 00:40] VITALS: BP 112/66
[2021-12-22 03:19] VITALS: BP 128/70
[2021-12-22] MEDS: MULTIVIT W/MINERALS TAB (THERAGRAN M) PO SCH (05:57)
[2021-12-22] MEDS ORDERED: DOCU100C37 PO (08:02)
[2021-12-22] MEDS ORDERED: OXC5T PO (08:02)
[2021-12-22] MEDS ORDERED: ASPI-1238 PO (08:02)
--- NOTE | 2021-12-22 08:04 | D/C HH Face to Face Order ---
D/C Face to Face Orders Instructions for Patient Via [facility], Patient Instructions/FollowUp: WBAT on Right Leg; Walker for Ambulation; Dry telfa daily to incision/2 weeks [address] Dr[address] Lm Lizarraga Physician to follow Patient: mL Lizarraga Discharge Diet for Home: Regular Diet Patient Data-Allergies,Ht & Wt Patient Allergies: Coded Allergies: No Known Drug Allergies (Unverified , 12/19/21) Home Health Need/Face to Face Date of Face to Face: Dec 22, 2021 Clinical Findings: Muscle weakness, Pain with ambulation I have seen Pt omgv-yz-zund: Yes Discharged To: Home Diagnosis/Conditions: Right Knee Primary Osteoarthritis s/p R TKA Patient is Homebound due to: Muscle weakness, Pain w/ambulation Homebound Status Due to the above stated illness, injury or surgical procedure (medical condition or diagnosis) and associated clinical findings, the patient is homebound because of his/her inability to leave home except with aid of a supportive device and/or person AND leaving the home requires a considerable and taxing effort or is medically contraindicated. Pt req the following assistanc: Walker [facility] Nursing Orders Home Health Services Order: Physical Therapy-Evaluate & Treat Home Health Infusion Therapy Line Start Date: Dec 19, 2021 Certify Stmt I certify that this patient is under my care and that I, a nurse practitioner or a physician; a public health training assistant working with me, had a face to face encounter that - meets the physician face to face encounter requirements with this patient as dated. LM LIZARRAGA MD Dec 22, 2021 08:04
--- NOTE | 2021-12-22 08:05 | Discharge Summary ---
Discharge Summary Hospital Course Hospital Course Date of Admission: Dec 19, 2021 at 05:57 Admission Diagnosis : Family Physician/Provider: Date of Discharge: 12/22/21 Discharge Diagnosis: Right Knee Primary Osteoarthritis Hospital Course: On 12/19/21, patient was admitted and taken to the operating room for right total knee arthroplasty. He tolerated the procedure well and was admitted to regular floor after the procedure. On the night of surgery, he did begin use of the CPM and was started on mechanical DVT prophylaxis. On POD #1, he was started on chemical prophylaxis. He began physical therapy. His pain was controlled on an oral pain medication regimen. On POD #2, he continued to make progress with therapy and arrangements were made for home health physical therapy. On POD #3, he was transitioning positions independently and ambulating well past 100 feet. He was ready for discharge home with home health. Labs and Pending Lab Test: Home Meds Active Docusate Sodium 100 Mg Capsule 100 Mg PO BID 30 Days Oxyir Tablet (Oxycodone HCl) 5 Mg Tab 5 Mg PO Q4H PRN 7 Days Aspirin EC (Aspirin) 81 Mg Tablet.dr 81 Mg PO BID WITH MEALS 12 Days Reported Voltaren Arthritis Pain (Diclofenac Sodium) 20 Gm Gel..gram. 20 Gm TP TID Probiotic (L.acidoph & Paracasei,B.lactis) 1 Each Capsule 1 Each PO DAILY Magnesium (Magnesium Oxide) 250 Mg Tablet 250 Mg PO DAILY Turmeric 500 mg Capsule (Turmeric/Turmeric Root Extract) 1 Each Capsule 1 Each PO DAILY Vitamin D3 Complete Caplet (Mv-Mn/Iron/FA/Herbal Cmplx#190) 1 Each Tablet 1 Each PO DAILY Glucosamine Sulfate (Glucosamine Sulfate 2Kcl) 1,000 Mg Capsule 2,000 Mg PO DAILY Multi For Him Softgel (Multivit-Min/Folic Acid/Vit K1) 1 Each Capsule 1 Each PO DAILY Zolpidem Tartrate 5 Mg Tablet 5 Mg PO HS Finasteride 5 Mg Tablet 5 Mg PO HS Flomax (Tamsulosin HCl) 0.4 Mg Cap 0.8 Mg PO DAILY Carvedilol 25 Mg Tablet 25 Mg PO BID MORNIG AND NOON Losartan-Hctz 100-12.5 mg Tab (Losartan/Hydrochlorothiazide) 1 Each Tablet 1 Each PO DAILY Celecoxib 200 Mg Capsule 200 Mg PO DAILY Assessment/Pt Instructions s/p R TKA: WBAT on right leg with walker; dry dressing daily; home health therapy for ROM/strengthening/gait training Discharge Instructions Discharge Diet: Regular Diet Discharge Physical Examination Vital Signs Vital Signs Date Time Temp Pulse Resp B/P (MAP) Pulse Ox O2 Delivery O2 Flow Rate FiO2 12/22/21 03:19 36.4 76 18 128/70 (89) 97 Room Air 12/20/21 13:55 0.00 Extremity: Other (Right Knee: Incision C/D/I, +DF of ankle, no s/s of DVT) Allergies: Coded Allergies: No Known Drug Allergies (Unverified , 12/19/21) Discharge Summary Date of Admission Dec 19, 2021 at 05:57 Date of Discharge DEYSI KRISHNA MD Dec 22, 2021 08:05
[2021-12-22 08:06] VITALS: BP 123/58
--- NOTE | 2021-12-22 08:14 | Physical Therapy Daily Note ---
PT Daily Note-Current Subjective Patient presents in chair and agrees to participate in physical therapy. Patient reports that he is supposed to go home around lunch time today. Patient reports that his knee is "kind of sore" this morning but not really painful. Mental Status Patient Orientation: Person, Place, Time, Situation Transfers SCALE: Activities may be completed with or without assistive devices. 6-Ukmtbubwwk-lpgxtgs completes the activity by him/herself with no assistance from a helper. 5-Set-up or Clean-up Assistance-helper sets up or cleans up; patient completes activity. [place] assists only prior to or following the activity. 4-Supervision or Touching Assistance-helper provides verbal cues and/or touching/steadying and/or contact guard assistance as patient completes activity. Assistance may be provided throughout the activity or intermittently. 3-Partial/Moderate Assistance-helper does LESS THAN HALF the effort. [place] lifts, holds or supports trunk or limbs, but provides less than half the effort. 2-Substantial/Maximal Assistance-helper does MORE THAN HALF the effort. [place] lifts or holds trunk or limbs and provides more than half the effort. 8-Ewshnungh-euvljz does ALL the effort. Patient does none of the effort to complete the activity. Or, the assistance of 2 or more helpers is required for the patient to complete the activity. If activity was not attempted, code reason: 7-Patient Refused. 9-Not Applicable-not attempted and the patient did not perform the activity before the current illness, exacerbation or injury. 10-Not Attempted due to Environmental Limitations-(lack of equipment, weather restraints, etc.). 88-Not Attempted due to Medical Conditions or Safety Concerns. Sit to Stand (QC): 6 Chair/Zqg-ni-Yffuf Xfer(QC): 6 Toilet Transfer (QC): 6 Weight Bearing Right Lower Extremity: Right Weight Bearing/Tolerated Left Lower Extremity: Left Full Weight Bearing Gait Training Does the Patient Walk?: Yes Distance: 200' Walk 10 feet (QC): 6 Walk 50 ft with 2 Turns(QC): 6 Walk 150 ft (QC): 6 Gait Assistive Device: FWW Stair Training Stair Training: Handrails/: 2 handrails #of Steps: 8 1 Step (curb) (QC): 6 4 Steps (QC): 6 Stairs: Pattern: Step to Exercises Seated Therapy Exercises: Ankle pumps, Long arc quads, Hip flexion Seated Reps: 15 Assessment Current Status: Good Progress Patient performed ambulation, seated exercises, and stair training today. Patient ambulated with FWW and is independent with it. Patient is independent with stairs after cues for proper step to pattern. Patient reports that he is going to have home health and then go to outpatient therapy. Patient is independent for all bed mobility, stairs, and ambulation. Visually patient is lacking a few degrees of extension and can get to 90 degrees of flexion actively. PT Manufacturing Production Manager Goals Manufacturing Production Manager Goals PT Mcfp Goals Time Frame: Dec 24, 2021 Roll Left & Right (QC): 6 Sit to Lying (QC): 6 Lying-Sitting on Side/Bed(QC): 6 Sit to Stand (QC): 6 Chair/Ido-qh-Veqcq Xfer(QC): 6 Does the Patient Walk: Yes Walk 10 feet (QC): 6 Walk 50ft with 2 Turns (QC): 6 Walk 150 ft (QC): 6 1 Step (curb) (QC): 6 4 Steps (QC): 6 PT Plan Problem List Problem List: Activity Tolerance, Functional Strength, Safety, Balance, Gait, Transfer, Bed Mobility, ROM Treatment/Plan Treatment Plan: Continue Plan of Care Treatment Plan: Bed Mobility, Education, Functional Activity Adela, Functional Strength, Gait, Safety, Therapeutic Exercise, Transfers Treatment Duration: Dec 24, 2021 Frequency: 11 times per week Estimated Hrs Per Day: .5 hour per day Safety Risks/Education Patient Education: Gait Training, Steps, Reviewed Precautions, Safety Issues Teaching Recipient: Patient Teaching Methods: Discussion Time/GCodes Time In: 742 Time Out: 800 Total Billed Treatment Time: 18 Total Billed Treatment 1 Visit FA 18 min MCKENNA REGAN PT Dec 22, 2021 08:14
[2021-12-22] MEDS: LOSARTAN 100 MG (COZAAR) TABLET PO SCH (08:22)
[2021-12-22] MEDS: DOCUSATE SODIUM 100 MG (COLACE) CAP PO SCH (08:22)
[2021-12-22] MEDS: ASPIRIN E.C. 81 MG (ECOTRIN) TAB PO SCH (08:22)
[2021-12-22] MEDS: CELECOXIB 100 MG (CeleBREX) CAP PO SCH (08:22)
[2021-12-22] MEDS: ACETAMINOPHEN 500 MG TAB (TYLENOL) PO PRN (08:22)
[2021-12-22] MEDS: TAMSULOSIN 0.4 MG (FLOMAX) CAP PO SCH (08:23)
== END 2021-12-22 11:30 | disposition home health service (06) | DRG 470 ==
LOC: 4TH 05:57 → SURG 05:58 → 4TH 10:30
PROVIDERS: ADMIT Orthopaedic Surgery; ATTEND Orthopaedic Surgery
PROC: 0SRC0J9 Replacement of Right Knee Joint with Synthetic Substitute, Cemented, Open Approach (ICD-10-PCS; principal; 2021-12-19 07:06)
DX: M17.11 Unilateral primary osteoarthritis, right knee (principal); I10 Essential (primary) hypertension; K21.9 Gastro-esophageal reflux disease without esophagitis; Z96.652 Presence of left artificial knee joint; Z79.1 Long term (current) use of non-steroidal anti-inflammatories (NSAID)
CPT/HCPCS: 36415; 73560; 85014; 85018; 86850; 86900; 86901; 94664

== ENCOUNTER → 2022-01-05 | Outpatient (CLI) | payer MEDICARE ==
[~2022-01-05] MED LIST changes: +ASPI-1238 PO; +DOCU100C37 PO; +OXC5T PO
== END ==
LOC: ORTHO 08:32
PROVIDERS: ATTEND Orthopaedic Surgery
DX: Z47.89 Encounter for other orthopedic aftercare (principal); Z98.890 Other specified postprocedural states

== ENCOUNTER → 2022-02-02 | Outpatient (CLI) | payer MEDICARE ==
--- NOTE | 2022-02-02 08:39 | Diagnostic Imaging Report ---
INDICATION: Right knee pain. TIME OF EXAM: 8:21 AM 2 views of the right knee demonstrate postoperative changes of total knee arthroplasty. The prosthetic elements appeared to be in good position. No fracture or loosening is seen. There does appear to be some soft tissue swelling about the anterior knee. No significant joint effusion is identified. IMPRESSION: Soft tissue swelling. No acute bony abnormality is detected. Dictated by: Dictated on workstation # [id number]
== END ==
LOC: ORTHO 08:11
PROVIDERS: ATTEND Orthopaedic Surgery
DX: M25.561 Pain in right knee (principal)
CPT/HCPCS: 73560

== ENCOUNTER → 2022-03-16 | Outpatient (CLI) | payer MEDICARE | LOC: ORTHO 08:20 | PROVIDERS: ATTEND Orthopaedic Surgery | DX: Z47.89 Encounter for other orthopedic aftercare (principal); Z98.890 Other specified postprocedural states ==

== ENCOUNTER → 2022-12-28 | Outpatient (CLI) | payer MEDICARE ==
--- NOTE | 2022-12-28 14:01 | Diagnostic Imaging Report ---
INDICATION: History of left knee replacement - 6 yrs COMPARISON: None FINDINGS: Two views of the left knee were obtained. Expected postoperative changes are seen from previous left knee total arthroplasty. Femoral and tibial components appear well-seated. There is no evidence of periprosthetic fracture. No unexpected radiopaque foreign bodies are identified. IMPRESSION: Expected postsurgical changes from previous left knee total arthroplasty, as described above. No evidence of hardware compromise. Dictated by: Dictated on workstation # [id number]
--- NOTE | 2022-12-28 14:18 | Diagnostic Imaging Report ---
INDICATION: History of rt total knee replacement . COMPARISON: 02/02/2022 FINDINGS: Two views of the right knee were obtained. Expected postoperative changes are seen from previous right knee total arthroplasty. Femoral and tibial components appear well-seated. There is no evidence of periprosthetic fracture. Moderate soft tissue swelling is again identified. There also appears to be moderate suprapatellar joint effusion. No unexpected radiopaque foreign bodies are identified. IMPRESSION: 1. Moderate soft tissue swelling and suprapatellar joint effusion, but no evidence of acute fracture or dislocation. 2. Postoperative changes of previous total right knee replacement. No evidence of hardware compromise. Dictated by: Dictated on workstation # [id number]
== END ==
LOC: ORTHO 10:26
PROVIDERS: ATTEND Orthopaedic Surgery
DX: M79.89 Other specified soft tissue disorders (principal); M25.461 Effusion, right knee; Z96.653 Presence of artificial knee joint, bilateral
CPT/HCPCS: 73560 ×2; G0463; 99213